=== PATIENT | female | born 1950 | race Caucasian/White ===

== ENCOUNTER → 2016-10-29 | Outpatient (CLI) | payer OTHER, MEDICARE ==
[~2016-10-29] MED LIST: ANASTROZOLE1 MG PO; ASPIRIN325 PO; BENTYL 10 MG CA10 MG PO; CRESTOR10 MG PO; CYMBALTA60 MG PO; FLONASE 0.05%50 MCG INH; KEFLEX500 MG PO; LIPITOR10 MG PO; MIRALAX255 GM PO; MIRTAZAPINE; NEXIUM 40 MG CA40 M1 PO; NEXIUM40 MG PO; PERCOCET 5-3251 EACH PO; PLAVIX 75 MG TA75 M1 PO; VITAMIN B COMP1 EACH PO; VITAMIN D 5050000 I1; VITAMIN D1000 UNI1 PO; ZOFRAN ODT4 MG PO
== END ==
LOC: RAD 11:05
DX: Z12.31 Encounter for screening mammogram for malignant neoplasm of breast (principal)

== ENCOUNTER → 2017-01-05 | Outpatient (CLI) | payer OTHER, MEDICARE | LOC: NUC 07:36 | DX: I25.10 Atherosclerotic heart disease of native coronary artery without angina pectoris (principal) ==

== ENCOUNTER → 2017-12-18 | Outpatient (CLI) | payer OTHER, MEDICARE | LOC: RAD 12:00 | DX: Z12.31 Encounter for screening mammogram for malignant neoplasm of breast (principal); Z90.12 Acquired absence of left breast and nipple ==

== ENCOUNTER → 2018-02-04 | Outpatient (CLI) | payer OTHER, MEDICARE | LOC: ULTRA 02-03 12:52 | DX: G45.9 Transient cerebral ischemic attack, unspecified (principal); M54.2 Cervicalgia ==

== ENCOUNTER → 2018-04-22 | Outpatient (CLI) | payer OTHER, MEDICARE ==
[~2018-04-22] VITALS: Ht 170.2 cm; Wt 72.6 kg
[~2018-04-22] MED LIST changes: +ASPIR 8181 MG PO
--- NOTE | ~2018-04-22 | P ---
[facility] [place] [address] PROCEDURE REPORT Name: SURESH BENITEZ Room #: REG [facility]#: [id number] Admission: 04/22/18 Attend Phys: Efrain Ribeiro MD Discharge: Date of : 48 Report #: [id number] THIS REPORT FOR: //name// CC: Efrain King MD DATE OF SERVICE: 04/22/2018 BRIEF HISTORY: The patient is a 67-year-old woman with history of multiple colon adenomas. I believe she had 9 adenomas 3 years ago. She presents for high risk screening colonoscopy due to her high adenoma count. She also reports a sister who has had anal cancer, but the patient reports that her sister apparently had 17 polyps. PREOPERATIVE DIAGNOSIS: High risk screening colonoscopy. POSTOPERATIVE DIAGNOSES: 1. Multiple colon and rectal polyps. 2. Moderate to severe diverticulosis coli, greater left colon than right colon. 3. Internal hemorrhoids. 4. Mild melanosis coli. MEDICATIONS: Deep sedation with propofol per Anesthesia. SPECIMEN: 1. Ascending colon polyp. 2. Polyp at 60 cm. 3. Polyp at 40 cm. 4. Rectal polyp. ESTIMATED BLOOD LOSS: 3 mL. PROCEDURE: Colonoscopy to cecum and terminal ileum with biopsy. FINDINGS: Prior to propofol sedation, procedure of colonoscopy was reviewed with the patient as well as potential risks and its complications. She indicates she understands and desires to proceed. DESCRIPTION OF PROCEDURE: Was placed in lateral decubitus position, digital examination was completed, which revealed no abnormalities. Subsequently, the Olympus video colonoscope was introduced in the rectum, advanced under direct vision to the cecum. Done with minimal difficulty. The cecum was identified by the ileocecal valve and the appendiceal orifice. I was able to visualize the distal segment of terminal ileum, which was inspected and noted to be unremarkable. At that point, scope was withdrawn and careful circumferential [facility] [address] [place] [address] PROCEDURE REPORT Name: SURESH BENITEZ Room #: REG [facility].#: [id number] Admission: 04/22/18 Attend Phys: Efrain Ribeiro MD Discharge: Date of : 48 Report #: [id number] views were obtained. Upon slow withdrawal of the scope, overall the prep was good after cleaning up a liquidy material, which was fairly easily suctioned away. Examination of the mucosa revealed a mild pattern of melanosis coli. It is noted that the patient does use senna products for constipation. As we withdrew the scope, she was noted to have scattered diverticula throughout the colon. However, the diverticula were more numerous in the left colon, in particular the sigmoid colon, as compared to the right colon. There was no endoscopic evidence of diverticulitis. At 60 cm, a diminutive polyp was seen and removed by biopsy. Scope was further withdrawn and at 40 cm another diminutive polyp was seen and removed by biopsy. Scope was withdrawn to the rectum and another diminutive polyp was seen and removed by biopsy. Upon retroflexion, small hemorrhoids were seen. Scope was withdrawn. The patient tolerated the procedure well. CONDITION OF THE PATIENT UPON DISCHARGE: Following the procedure, the patient drowsy, aroused, conversant and will be discharged home when fully ambulatory. INSTRUCTIONS TO THE PATIENT AND FAMILY AT THE TIME OF DISCHARGE: A total of 4 polyps were identified and removed today. Given her history, and family history, genetic counseling and testing may be a consideration for this patient. We will discuss further with the patient. However, due to her history of colon polyps I would suggest she return in 3 years for her next colonoscopy. She has had chronic constipation her entire life. She is using senna products. She tried Linzess in the past, reports it did not work well. We will have her try Amitiza and if needed she may co-administrate with MiraLax. We will have her follow up in the office in about 8 weeks to monitor her progress with the MiraLax and make further recommendations as needed. Last colonoscopy was 3 years ago. Withdrawal time from cecum was 19 minutes 59 seconds. <ELECTRONICALLY SIGNED> By: Efrain Ribeiro MD 04/26/18 1044 [id number] Efrain Ribeiro MD /nt
--- NOTE | ~2018-04-22 | PATH ---
[facility] [place] [address] PATHOLOGY RPT PROCEDURE Name: CATY BENITEZ Room #: REG [facility]#: [id number] Admission: 04/22/18 Date of : 48 Discharge: Report #: [id number] Path Case #: [id number] [facility] Accession Number: [id number] . 01 Material submitted: . PART A: BX OF PROX ASCENDING COLON POLYP PART B: BX OF POLYP @ 60CM PART C: BX OF POLYP @ 40CM PART D: BX OF RECTAL POLYP . 01 Clinical history: . Pre-OP DX: Hx of polyps Post-OP DX: Colon polyp, diverticulosis, hemorrhoids . 02 Diagnosis: A. Polyp, proximal ascending colon polyp, endoscopic biopsy: - Tubular adenoma. - Negative for high-grade dysplasia. . B. Polyp at 60 cm, endoscopic biopsy: - Tubular adenoma. - Negative for high-grade dysplasia. . C. Polyp at 40 cm, endoscopic biopsy: - Tubular adenoma. - Negative for high-grade dysplasia. . D. Polyp, rectal polyp, endoscopic biopsy: - Hyperplastic polyp. - Negative for dysplasia. (IUV:mimi; 04/23/2018) QMS/04/23/2018 . 02 Electronically signed: . Sandra Martinez MD, Pathologist NPI- [id number] . 01 Gross description: . A. Received in formalin labeled "Caty Benitez, BX of proximal ascending colon polyp," are 2 segments of reyes soft tissue measuring 0.7 x 0.3 x 0.3 cm in aggregate dimensions and ranging from 0.3 to 0.4 cm in maximum dimension. The specimen is submitted entirely in cassette A1. . B. Received in formalin labeled "Caty Benitez, BX of polyp at cecum," are 6 segments of reyes soft tissue measuring 1.1 x 0.9 x 0.2 cm in aggregate dimensions and ranging from 0.2 to 0.3 cm in maximum dimension. The specimen is submitted entirely in cassette B1. [address] [address] PATHOLOGY RPT PROCEDURE Name: CATY BENITEZ Room #: REG [facility] Matthew#: [id number] Admission: 04/22/18 Date of : 48 Discharge: Report #: [id number] Path Case #: [id number] . C. Received in formalin labeled "Caty Benitez, BX of polyp at 40 cm," are 2 segments of reyes soft tissue measuring 0.7 x 0.2 x 0.2 cm in aggregate dimensions and ranging from 0.3 to 0.4 cm in maximum dimension. The specimen is submitted entirely in cassette C1. . D. Received in formalin labeled "Caty Benitez, BX of rectal polyp," is a single segment of reyes soft tissue measuring 0.4 cm in maximum dimension. The specimen is entirely submitted in cassette D1. (TSD; 04/22/2018) TOB/TOB . 02 Pathologist provided ICD-10: D12.2, D12.6, K62.1 . 02 CPT . 248335, 077018, [id number], [id number] Specimen Comment: A courtesy copy of this report has been sent to Specimen Comment: [phone], . Specimen Comment: Report sent to and Specimen Comment: A duplicate report has been generated due to demographic updates. Performed at: [address] [facility], [place] [id number] MD Perez Colvin MD Phone: [phone] Performed at: [address] [id number] MD Sandra Martinez MD Phone: [phone]
== END | disposition home or self-care (01) ==
LOC: GI 07:24
DX: Z12.11 Encounter for screening for malignant neoplasm of colon (principal); D12.2 Benign neoplasm of ascending colon; D12.5 Benign neoplasm of sigmoid colon; D12.4 Benign neoplasm of descending colon; K62.1 Rectal polyp; K64.8 Other hemorrhoids; K63.89 Other specified diseases of intestine; K57.30 Diverticulosis of large intestine without perforation or abscess without bleeding; I73.9 Peripheral vascular disease, unspecified; E78.5 Hyperlipidemia, unspecified; F17.210 Nicotine dependence, cigarettes, uncomplicated; F32.9 Major depressive disorder, single episode, unspecified; F41.9 Anxiety disorder, unspecified; Z80.0 Family history of malignant neoplasm of digestive organs; Z86.010 Personal history of colon polyps; Z83.71 Family history of colonic polyps; Z98.51 Tubal ligation status; Z79.899 Other long term (current) drug therapy; Z98.890 Other specified postprocedural states; Z85.3 Personal history of malignant neoplasm of breast; Z88.0 Allergy status to penicillin; Z79.82 Long term (current) use of aspirin
CPT/HCPCS: 62110; 62900

== ENCOUNTER → 2019-03-02 | Outpatient (CLI) | payer OTHER, MEDICARE | LOC: RAD 08:40 | DX: Z12.31 Encounter for screening mammogram for malignant neoplasm of breast (principal) ==

== ENCOUNTER → 2019-12-20 | Outpatient (CLI) | payer OTHER, MEDICARE | LOC: SJCVCIMAG 10:46 | DX: R94.31 Abnormal electrocardiogram [ECG] [EKG] (principal); I25.10 Atherosclerotic heart disease of native coronary artery without angina pectoris; E78.00 Pure hypercholesterolemia, unspecified; I73.9 Peripheral vascular disease, unspecified; E78.5 Hyperlipidemia, unspecified ==

== ENCOUNTER → 2019-12-30 | Outpatient (CLI) | payer OTHER, MEDICARE | LOC: CAT 14:47 | PROVIDERS: ATTEND Nurse Practitioner | DX: R51 Headache (principal); R11.0 Nausea; R42 Dizziness and giddiness; F07.81 Postconcussional syndrome ==

== ENCOUNTER → 2020-03-13 | Outpatient (CLI) | payer OTHER, MEDICARE | LOC: BC 09:24 | PROVIDERS: ATTEND Family Medicine | DX: Z12.31 Encounter for screening mammogram for malignant neoplasm of breast (principal); N64.89 Other specified disorders of breast ==

== ENCOUNTER → 2020-09-19 | Outpatient (CLI) | payer OTHER, MEDICARE | LOC: SJCVC 15:03 | PROVIDERS: ATTEND Internal Medicine Cardiovascular Disease | DX: R94.31 Abnormal electrocardiogram [ECG] [EKG] (principal); I25.10 Atherosclerotic heart disease of native coronary artery without angina pectoris; I73.9 Peripheral vascular disease, unspecified; E78.00 Pure hypercholesterolemia, unspecified; I10 Essential (primary) hypertension; K21.9 Gastro-esophageal reflux disease without esophagitis; Z95.828 Presence of other vascular implants and grafts; Z98.890 Other specified postprocedural states; Z72.0 Tobacco use; Z88.0 Allergy status to penicillin; Z79.82 Long term (current) use of aspirin; Z79.899 Other long term (current) drug therapy ==

== ENCOUNTER → 2020-11-09 | Outpatient (CLI) | payer OTHER, MEDICARE | LOC: SJCVCIMAG 07:30 | PROVIDERS: ATTEND Internal Medicine Cardiovascular Disease | DX: I71.4 Abdominal aortic aneurysm, without rupture (principal); I73.9 Peripheral vascular disease, unspecified; I25.10 Atherosclerotic heart disease of native coronary artery without angina pectoris; E78.00 Pure hypercholesterolemia, unspecified; R53.83 Other fatigue; K21.9 Gastro-esophageal reflux disease without esophagitis; F17.200 Nicotine dependence, unspecified, uncomplicated; Z79.82 Long term (current) use of aspirin; Z79.899 Other long term (current) drug therapy; Z72.89 Other problems related to lifestyle; Z85.3 Personal history of malignant neoplasm of breast; Z88.0 Allergy status to penicillin ==

== ENCOUNTER → 2021-05-08 | Outpatient (CLI) | payer OTHER, MEDICARE | LOC: BC 10:29 | PROVIDERS: ATTEND Family Medicine | DX: Z12.31 Encounter for screening mammogram for malignant neoplasm of breast (principal) ==

== ENCOUNTER → 2021-05-15 | Outpatient (CLI) | payer OTHER, MEDICARE | LOC: SJCVC 09:43 | PROVIDERS: ATTEND Internal Medicine Cardiovascular Disease | DX: I25.10 Atherosclerotic heart disease of native coronary artery without angina pectoris (principal); I73.9 Peripheral vascular disease, unspecified; E78.00 Pure hypercholesterolemia, unspecified; Z88.0 Allergy status to penicillin; Z79.82 Long term (current) use of aspirin; Z79.899 Other long term (current) drug therapy; F17.200 Nicotine dependence, unspecified, uncomplicated; Z72.89 Other problems related to lifestyle; K21.9 Gastro-esophageal reflux disease without esophagitis; I10 Essential (primary) hypertension ==